=== PATIENT | female | born 1990 | race Asian ===

== ENCOUNTER 2018-07-31 15:22 | Emergency (ER) | payer OTHER ==
[~2018-07-31] VITALS: Ht 177.8 cm; Wt 124.7 kg
[2018-07-31 16:10] LABS: BASOPHILS # (AUTO) 0.03 x10^3/uL (0-0.1); BASOPHILS % (AUTO) 0 % (0-1); EOSINOPHILS # (AUTO) 0.27 x10^3/uL (0-0.4); EOSINOPHILS % (AUTO) 3 % (1-7); LYMPHOCYTES # (AUTO) 2.34 x10^3/uL (1-3.4); LYMPHOCYTES % (AUTO) 25 % (22-44); MD NO; MEAN CORPUSCULAR HEMOGLOBIN 24.2 pg (27.0-34.8); MEAN CORPUSCULAR HGB CONC 32.5 g/dL (32.4-35.8); MEAN CORPUSCULAR VOLUME 74.5 fL (80-100); MEAN PLATELET VOLUME 7.9 fL (7.4-10.4); MONOCYTES % (AUTO) 5 % (2-9); NEUTROPHILS # (AUTO) 6.28 x10^3/uL (1.8-6.8); NEUTROPHILS % (AUTO) 67 % (42-75); PLATELET COUNT 272 x10^3/uL (130-400); RED CELL DISTRIBUTION WIDTH 13.9 % (9.6-15.2)
[2018-07-31 16:23] LABS: ALANINE AMINOTRANSFERASE 50 U/L (12-78); ALBUMIN 3.9 g/dL (3.4-5.0); ANION GAP 8 mmol/L (5-15); CALCIUM 9.3 mg/dL (8.5-10.1); CHLORIDE 105 mmol/L (98-107); CREATININE 0.87 mg/dL (0.55-1.02)
[2018-07-31 16:25] LABS: ALKALINE PHOSPHATASE 117 U/L (45-117); BILIRUBIN,TOTAL 0.6 mg/dL (0.2-1.0); TOTAL PROTEIN 8.9 g/dL (6.4-8.2)
[2018-07-31 16:48] LABS: HCG UR SG 1.027 (1.003-1.030)
[2018-07-31 17:57] VITALS: BP 144/89
[2018-07-31] MEDS ORDERED: ONDANSETRON ODT 4 MG PO PRN (18:00)
== END 2018-07-31 18:39 | disposition home or self-care (01) ==
LOC: ED 18:34
DX: E11.65 Type 2 diabetes mellitus with hyperglycemia (principal); R20.2 Paresthesia of skin; R51 Headache
CPT/HCPCS: 36415; 70450; 80053; 81025; 83735; 85025; 99285

== ENCOUNTER 2018-08-04 11:01 | Emergency (ER) | payer OTHER ==
[~2018-08-04] VITALS: Ht 177.8 cm; Wt 124.6 kg
[2018-08-04] MEDS ORDERED: SODIUM CHLORIDE FLUSH 10ML SYR IVF ONE (12:00)
[2018-08-04 12:21] LABS: BASOPHILS # (AUTO) 0.04 x10^3/uL (0-0.1); BASOPHILS % (AUTO) 0 % (0-1); EOSINOPHILS # (AUTO) 0.27 x10^3/uL (0-0.4); EOSINOPHILS % (AUTO) 3 % (1-7); LYMPHOCYTES # (AUTO) 1.94 x10^3/uL (1-3.4); LYMPHOCYTES % (AUTO) 20 % (22-44); MD NO; MEAN CORPUSCULAR HEMOGLOBIN 24.6 pg (27.0-34.8); MEAN CORPUSCULAR HGB CONC 32.9 g/dL (32.4-35.8); MEAN CORPUSCULAR VOLUME 74.7 fL (80-100); MEAN PLATELET VOLUME 7.8 fL (7.4-10.4); MONOCYTES # (AUTO) 0.55 x10^3/uL (0.2-0.8); MONOCYTES % (AUTO) 6 % (2-9); NEUTROPHILS % (AUTO) 71 % (42-75); PLATELET COUNT 266 x10^3/uL (130-400); RED BLOOD COUNT 6.37 x10^6/uL (3.82-5.3); RED CELL DISTRIBUTION WIDTH 13.9 % (9.6-15.2)
[2018-08-04 12:33] LABS: ALBUMIN 3.6 g/dL (3.4-5.0); ANION GAP 6 mmol/L (5-15); CALCIUM 9.1 mg/dL (8.5-10.1); CHLORIDE 105 mmol/L (98-107)
[2018-08-04 12:37] LABS: ALANINE AMINOTRANSFERASE 46 U/L (12-78); ALKALINE PHOSPHATASE 108 U/L (45-117); BILIRUBIN,TOTAL 0.4 mg/dL (0.2-1.0); CREATININE 0.81 mg/dL (0.55-1.02); TOTAL PROTEIN 8.7 g/dL (6.4-8.2)
[2018-08-04] MEDS ORDERED: GADOBUTROL 10 MMOL/10 ML PFS ONE (14:03)
[2018-08-04 14:36] VITALS: BP 174/100
== END 2018-08-04 16:00 | disposition home or self-care (01) ==
LOC: ED 12:23
DX: R20.2 Paresthesia of skin (principal); E11.65 Type 2 diabetes mellitus with hyperglycemia; R53.1 Weakness
CPT/HCPCS: 36415; 70553; 80053; 85025; 99285; A9585

== ENCOUNTER 2018-08-06 14:29 | Inpatient (IN) | payer OTHER ==
[~2018-08-06] VITALS: Ht 177.8 cm; Wt 124.4 kg
[2018-08-06] VITALS (7 sets, daily range): BP systolic 132–161; BP diastolic 71–122
[2018-08-06] MEDS ORDERED: LABETALOL 5MG/ML, 20ML ONE (15:20)
[2018-08-06 15:28] LABS: BASOPHILS # (AUTO) 0.02 x10^3/uL (0-0.1); BASOPHILS % (AUTO) 0 % (0-1); EOSINOPHILS # (AUTO) 0.29 x10^3/uL (0-0.4); EOSINOPHILS % (AUTO) 3 % (1-7); LYMPHOCYTES # (AUTO) 1.85 x10^3/uL (1-3.4); LYMPHOCYTES % (AUTO) 19 % (22-44); MD NO; MEAN CORPUSCULAR HEMOGLOBIN 24.9 pg (27.0-34.8); MEAN CORPUSCULAR HGB CONC 33.1 g/dL (32.4-35.8); MEAN CORPUSCULAR VOLUME 75.3 fL (80-100); MEAN PLATELET VOLUME 7.9 fL (7.4-10.4); MONOCYTES % (AUTO) 6 % (2-9); NEUTROPHILS # (AUTO) 6.89 x10^3/uL (1.8-6.8); NEUTROPHILS % (AUTO) 71 % (42-75); PLATELET COUNT 274 x10^3/uL (130-400); RED BLOOD COUNT 6.31 x10^6/uL (3.82-5.3); RED CELL DISTRIBUTION WIDTH 13.3 % (9.6-15.2)
[2018-08-06 15:40] LABS: INTERNATIONAL NORMALIZED RATIO 0.97 (0.93-1.1)
[2018-08-06] MEDS ORDERED: GADOBUTROL 10 MMOL/10 ML PFS ONE (15:43)
[2018-08-06] MEDS ORDERED: METF500T17 PO (16:02)
[2018-08-06] MEDS ORDERED: ALTEPLASE 1 MG/ML ONE (16:26)
[2018-08-06] MEDS ORDERED: LABETALOL 5MG/ML, 20ML IVPush ONE (16:28)
[2018-08-06] MEDS ORDERED: ALTEPLASE 81 MG in VIAL 1 EACH IV ONE (16:30)
[2018-08-06] MEDS ORDERED: ALTEPLASE 9 MG in SYRINGE 1 EA IVPush ONE (16:30)
[2018-08-06] MEDS ORDERED: ACETAMINOPHEN 325 MG TABLET PO PRN (18:00)
[2018-08-06] MEDS ORDERED: ONDANSETRON 2MG/ML, 2ML IVPush PRN (18:00)
[2018-08-06] MEDS ORDERED: LIDODERM 5% PATCH TD PRN (18:00)
[2018-08-06] MEDS ORDERED: DOCUSATE 100 MG CAPSULE PO PRN (18:00)
[2018-08-06] MEDS ORDERED: BISACODYL 10 MG SUPP PR PRN (18:00)
[2018-08-06] MEDS ORDERED: OMNIPAQUE 350 MG/ML, 150 ML BOTTLE ONE (18:03)
[2018-08-06] MEDS ORDERED: PANTOPRAZOLE 40 MG IV IVPush ONE (18:30)
[2018-08-06 19:19] LABS: AMPHETAMINE SCREEN, URINE Negative (Negative); BARBITURATE SCREEN, URINE Negative (Negative); BENZODIAZEPINE SCREEN, URINE Negative (Negative); CANNABINOID SCREEN, URINE Negative (Negative); COCAINE SCREEN, URINE Negative (Negative); METHADONE SCREEN, URINE Negative (Negative); OPIATE SCREEN, URINE Negative (Negative)
[2018-08-06] MEDS: LACTULOSE 10 GM/15 ML UDC PO SCH (21:00)
[2018-08-06] MEDS: ATORVASTATIN 80 MG TABLET PO SCH (22:00)
[2018-08-07] MEDS: INSULIN LISPRO 100 UNITS/ML, PEN SQ-INSULIN SCH ×5 (00:10→20:01)
[2018-08-07 01:34] VITALS: BP 140/93
[2018-08-07 05:59] LABS: ALBUMIN 3.5 g/dL (3.4-5.0); ANION GAP 11 mmol/L (5-15); CALCIUM 9.1 mg/dL (8.5-10.1); CHLORIDE 103 mmol/L (98-107)
[2018-08-07 06:02] LABS: ALANINE AMINOTRANSFERASE 39 U/L (12-78); ALKALINE PHOSPHATASE 100 U/L (45-117); BILIRUBIN,TOTAL 1.3 mg/dL (0.2-1.0); CHOL/HDL RATIO 5.8; CHOLESTEROL, TOTAL 174 mg/dL (140-239); CREATININE 0.69 mg/dL (0.55-1.02); HDL CHOL % 17 % (28-40); HDL CHOLESTEROL (DIRECT) 30 mg/dL (40-60); LDL CHOLESTEROL,CALCULATED 99 mg/dL (54-169); LDL/HDL RATIO 3.3 (0.5-3.0); TOTAL PROTEIN 8.2 g/dL (6.4-8.2); TRIGLYCERIDES 224 mg/dL (50-200); VLDL CHOLESTEROL 45 mg/dL (0-25)
[2018-08-07 06:04] LABS: BASOPHILS # (AUTO) 0.02 x10^3/uL (0-0.1); BASOPHILS % (AUTO) 0 % (0-1); EOSINOPHILS # (AUTO) 0.32 x10^3/uL (0-0.4); EOSINOPHILS % (AUTO) 3 % (1-7); LYMPHOCYTES # (AUTO) 2.47 x10^3/uL (1-3.4); LYMPHOCYTES % (AUTO) 21 % (22-44); MD NO; MEAN CORPUSCULAR HEMOGLOBIN 24.8 pg (27.0-34.8); MEAN CORPUSCULAR HGB CONC 33.1 g/dL (32.4-35.8); MEAN CORPUSCULAR VOLUME 74.8 fL (80-100); MEAN PLATELET VOLUME 8.5 fL (7.4-10.4); MONOCYTES # (AUTO) 0.64 x10^3/uL (0.2-0.8); MONOCYTES % (AUTO) 5 % (2-9); NEUTROPHILS # (AUTO) 8.39 x10^3/uL (1.8-6.8); NEUTROPHILS % (AUTO) 71 % (42-75); PLATELET COUNT 255 x10^3/uL (130-400); RED BLOOD COUNT 6.02 x10^6/uL (3.82-5.3)
[2018-08-07 06:14] LABS: HEMOGLOBIN A1C 8.1 % (4.2-6.3)
[2018-08-07] MEDS ORDERED: PANTOPRAZOLE 40 MG IV IVPush SCH (09:00)
[2018-08-07] MEDS: LACTULOSE 10 GM/15 ML UDC PO SCH ×2 (09:00→20:02)
[2018-08-07] MEDS ORDERED: LISINOPRIL 20 MG TABLET PO SCH (12:30)
[2018-08-07] MEDS: ATORVASTATIN 80 MG TABLET PO SCH (20:01)
[2018-08-08] MEDS: INSULIN LISPRO 100 UNITS/ML, PEN SQ-INSULIN SCH ×4 (08:03→20:39)
[2018-08-08] MEDS ORDERED: LACTULOSE 10 GM/15 ML UDC PO PRN (09:00)
[2018-08-08] MEDS: PANTOPROZOLE 40MG TABLET PO SCH (10:00)
[2018-08-08] MEDS ORDERED: ASPIRIN 81 MG TABLET EC PO ONE (11:00)
[2018-08-08 14:30] VITALS: BP 129/88
[2018-08-08] MEDS: ATORVASTATIN 80 MG TABLET PO SCH (20:37)
[2018-08-09 00:18] VITALS: BP 125/80
[2018-08-09 05:03] LABS: ANION GAP 9 mmol/L (5-15); CALCIUM 8.5 mg/dL (8.5-10.1); CHLORIDE 106 mmol/L (98-107)
[2018-08-09 05:06] LABS: CREATININE 0.74 mg/dL (0.55-1.02)
[2018-08-09] MEDS ORDERED: ASPIRIN 81 MG TABLET EC PO SCH (06:00)
[2018-08-09 07:23] VITALS: BP 103/73
[2018-08-09] MEDS: PANTOPROZOLE 40MG TABLET PO SCH (07:30)
[2018-08-09] MEDS ORDERED: PANTOPROZOLE 40MG TABLET PO SCH (07:30)
[2018-08-09] MEDS: INSULIN LISPRO 100 UNITS/ML, PEN SQ-INSULIN SCH ×2 (08:13→11:00)
[2018-08-09] MEDS ORDERED: LIDOCAINE-MPF 1%, 5ML ONE (08:32)
[2018-08-09] MEDS ORDERED: PROPOFOL 10 MG/ML, 50ML ONE (08:38)
[2018-08-09 14:24] VITALS: BP 135/88
[2018-08-09] MEDS ORDERED: ASPI-621 PO (15:14)
[2018-08-09] MEDS ORDERED: ATOR-2 PO (15:14)
[2018-08-09] MEDS ORDERED: LISI5TAB7 PO (15:16)
== END 2018-08-09 18:17 | disposition home health service (06) | DRG 41 ==
LOC: ED 14:58 → EDIP 16:04 → CCU 18:05 → 4WST 08-08 12:37
PROVIDERS: ADMIT Hospitalist; ATTEND Hospitalist
PROC: 3E03317 Introduction of Other Thrombolytic into Peripheral Vein, Percutaneous Approach (ICD-10-PCS; principal; 2018-08-06)
PROC: 0JH632Z Insertion of Monitoring Device into Chest Subcutaneous Tissue and Fascia, Percutaneous Approach (ICD-10-PCS; 2018-08-09)
DX: I63.9 Cerebral infarction, unspecified (principal); Z68.41 Body mass index [BMI] 40.0-44.9, adult; G81.94 Hemiplegia, unspecified affecting left nondominant side; I10 Essential (primary) hypertension; R29.704 NIHSS score 4; E11.9 Type 2 diabetes mellitus without complications; E66.01 Morbid (severe) obesity due to excess calories; E78.5 Hyperlipidemia, unspecified; Z79.82 Long term (current) use of aspirin; Z79.899 Other long term (current) drug therapy; Z87.891 Personal history of nicotine dependence; R29.810 Facial weakness
CPT/HCPCS: 0042T; 33282; 36415; 37195; 70450; 70496; 70549; 70553; 80047; 80048; 80053; 80061; 80307; 81240; 81241; 82962; 83036; 83735; 85025; 85300; 85301; 85303; 85306; 85598; 85610; 85613; 85670; 85730; 85732; 86146; 86147; 87081; 93005; 93306; 93312; 93325; 99285; A9585; C1764; G0378; J2704; J2997; Q9967; 92523-GN; C9113; J1815; J7050

== ENCOUNTER 2021-02-19 17:11 | Emergency (ER) | payer MEDICAID, OTHER ==
[~2021-02-19] VITALS: Ht 175.3 cm; Wt 121.2 kg
[~2021-02-19 17:11] MED LIST: ASPI81TA45 PO; ATOR-2 PO; LISI5TAB7 PO; METF500T17 PO
--- NOTE | 2021-02-19 19:08 | NUR ---
PT TO ROOM FROM [facility], AMBULATORY WITH STEADY GAIT
--- NOTE | 2021-02-19 19:25 | NUR ---
INITIAL PT CONTACT. PT PRESENTS TO ED C/O "RUPTURING CYSTS IN MY ARMPIT, BEEN HAPPENING FOR APPROX 1 WEEK". PT SITTING UPRIGHT ON [address], VSAngel Luis. PT DENIES ANY NEEDS AT THIS TIME. CALL LIGHT AND BELONGINGS WITHIN REACH. FAMILY AT BEDSIDE. AWAITING ERP.
[2021-02-19] MEDS ORDERED: DIPH,PERTUSS(ACELL),TET VAC/PF 0.5 ML IM-VACC ONE ×2 (19:30)
[2021-02-19] MEDS ORDERED: LIDOCAINE-MPF 1%, 5ML ONE (19:30)
[2021-02-19] MEDS ORDERED: LIDOCAINE 1%-EPI 1:100K, 20ML INFIL ONE (19:30)
[2021-02-19 19:35] LABS: BASOPHILS % (AUTO) 1 % (0-1); EOSINOPHILS % (AUTO) 3 % (1-7); LYMPHOCYTES % (AUTO) 14 % (22-44); MEAN CORPUSCULAR HEMOGLOBIN 23.6 pg (27.0-34.8); MEAN CORPUSCULAR HGB CONC 32.4 g/dL (32.4-35.8); MEAN PLATELET VOLUME 7.9 fL (7.4-10.4); MONOCYTES % (AUTO) 6 % (2-9); NEUTROPHILS % (AUTO) 76 % (42-75); PLATELET COUNT 258 x10^3/uL (130-400); RED BLOOD COUNT 6.02 x10^6/uL (3.82-5.3); RED CELL DISTRIBUTION WIDTH 14.1 % (9.6-15.2)
[2021-02-19 19:36] LABS: MD NO
[2021-02-19 19:41] LABS: ANION GAP 5 mmol/L (5-15); CHLORIDE 105 mmol/L (98-107); CREATININE 0.86 mg/dL (0.55-1.02)
[2021-02-19] MEDS ORDERED: ENALAPRILAT 1.25 MG/ML, 1ML ONE (20:16)
[2021-02-19] MEDS ORDERED: PROPOFOL 10 MG/ML, 20ML ONE (20:16)
[2021-02-19] MEDS ORDERED: PROPOFOL 10 MG/ML, 20ML IVPush ONE (20:30)
[2021-02-19] MEDS ORDERED: ENALAPRILAT 1.25 MG/ML, 2ML IV ONE (20:30)
--- NOTE | 2021-02-19 20:44 | NUR ---
PT PREPARED FOR SEDATION, PLACED ON CONTINUOUS PULSE OX, CARDIAC AND END TIDAL CO2 MONITORING. CONSENT AT BEDSIDE AND SIGNED BY PT. EMERGENCY EQUIPMENT AVAILABLE AT BEDSIDE. AWAITING ERP FOR PROCEDURE.
[2021-02-19 21:35] VITALS: BP 144/94
--- NOTE | 2021-02-19 21:39 | NUR ---
PROCEDURAL SEDATION COMPLETE. PT TOLERATED WELL. WOUND DRESSED WITH GAUZE. PT REPORTS "FEELING MUCH BETTER" FOLLOWING REGISTRAR MUSEUM. PT RETURNED TO BASELINE. NO ADDITIONAL NEEDS AT THIS TIME. MOTHER AT BEDSIDE
[2021-02-19] MEDS ORDERED: HYDROmorphone 1 MG/ML, 1ML INJ ONE (21:48)
[2021-02-19] MEDS ORDERED: ONDANSETRON 2MG/ML, 2ML ONE (21:48)
[2021-02-19] MEDS ORDERED: HYDROmorphone 1 MG/ML, 1ML INJ IV ONE (22:00)
[2021-02-19] MEDS ORDERED: ONDANSETRON 2MG/ML, 2ML IVPush ONE (22:00)
--- NOTE | 2021-02-19 22:38 | NUR ---
Patient given discharge instructions and they have confirmed that they understand the instructions. Patient ambulatory with steady gait.
== END 2021-02-19 22:41 | disposition home or self-care (01) ==
LOC: ED 22:40
DX: L03.112 Cellulitis of left axilla (principal); L73.2 Hidradenitis suppurativa; Z72.9 Problem related to lifestyle, unspecified
CPT/HCPCS: 10060; 36415; 80048; 85025; 90471; 90715; 96374; 96375; 99152; 99285; J1170; J2405

== ENCOUNTER 2021-02-21 12:29 | Emergency (ER) | payer MEDICAID ==
[~2021-02-21] VITALS: Ht 177.8 cm; Wt 120.9 kg
[2021-02-21 12:44] VITALS: BP 145/95
--- NOTE | 2021-02-21 13:02 | NUR ---
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
[2021-02-21] MEDS ORDERED: NEOSPORIN OINT. PKT 1 PACKET ONE (14:19)
== END 2021-02-21 15:05 | disposition home or self-care (01) ==
LOC: ED 13:08
DX: L02.413 Cutaneous abscess of right upper limb (principal); Z86.73 Personal history of transient ischemic attack (TIA), and cerebral infarction without residual deficits; I10 Essential (primary) hypertension; E11.9 Type 2 diabetes mellitus without complications
CPT/HCPCS: 99281; 99282

== ENCOUNTER 2021-02-28 21:53 | Emergency (ER) | payer MEDICAID ==
[~2021-02-28] VITALS: Ht 177.8 cm; Wt 120.3 kg
[2021-03-01] MEDS ORDERED: DIPHENHYDRAMINE 50 MG/ML, 1ML IVPush ONE
[2021-03-01] MEDS ORDERED: SODIUM CHLORIDE FLUSH 10ML SYR IVF ONE
[2021-03-01] MEDS ORDERED: MORPHINE SULFATE 4 MG/ML, 1ML IVPush PRN
[2021-03-01] MEDS ORDERED: PROCHLORPERAZINE 5 MG/ML, 2ML IVPush ONE
[2021-03-01] MEDS ORDERED: SODIUM CHLORIDE 0.9% 1,000ML IVBOLUS ONE
[2021-03-01] MEDS ORDERED: KETOROLAC 30 MG/1 ML IVPush ONE
[2021-03-01] MEDS ORDERED: DIPHENHYDRAMINE 50 MG/ML, 1ML ONE (00:10)
[2021-03-01] MEDS ORDERED: KETOROLAC 30 MG/1 ML ONE (00:10)
[2021-03-01] MEDS ORDERED: MORPHINE SULFATE 4 MG/ML, 1ML ONE (00:10)
[2021-03-01] MEDS ORDERED: PROCHLORPERAZINE 5 MG/ML, 2ML ONE (00:10)
[2021-03-01 00:28] LABS: BASOPHILS % (AUTO) 0 % (0-1); EOSINOPHILS % (AUTO) 5 % (1-7); LYMPHOCYTES % (AUTO) 17 % (22-44); MD NO; MEAN CORPUSCULAR HEMOGLOBIN 23.5 pg (27.0-34.8); MEAN CORPUSCULAR HGB CONC 32.8 g/dL (32.4-35.8); MEAN PLATELET VOLUME 8.2 fL (7.4-10.4); MONOCYTES % (AUTO) 5 % (2-9); NEUTROPHILS % (AUTO) 73 % (42-75); PLATELET COUNT 141 x10^3/uL (130-400); RED BLOOD COUNT 6.23 x10^6/uL (3.82-5.3); RED CELL DISTRIBUTION WIDTH 14.2 % (9.6-15.2)
--- NOTE | 2021-03-01 00:30 | NUR ---
HAS C/O HEADACHE AND BODY ACHES FOR THE LAST 2 DAYS, PT HAS FAMILY AT BEDSIDE, PT A/OX4 WITH UNLABORED BREATHING. PT MEDICATED PER MAR
[2021-03-01 00:33] LABS: ALANINE AMINOTRANSFERASE 45 U/L (12-78); ALBUMIN 3.4 g/dL (3.4-5.0); ANION GAP 7 mmol/L (5-15); CALCIUM 8.7 mg/dL (8.5-10.1); CHLORIDE 102 mmol/L (98-107); CREATININE 0.79 mg/dL (0.55-1.02)
[2021-03-01 00:36] LABS: ALKALINE PHOSPHATASE 120 U/L (45-117); BILIRUBIN,TOTAL 0.6 mg/dL (0.2-1.0); TOTAL PROTEIN 8.4 g/dL (6.4-8.2)
[2021-03-01 02:16] LABS: MICROSCOPIC AUTO
[2021-03-01 02:39] VITALS: BP 155/88
== END 2021-03-01 02:40 | disposition home or self-care (01) ==
LOC: ED 22:34
DX: G43.C0 Periodic headache syndromes in child or adult, not intractable (principal); E11.65 Type 2 diabetes mellitus with hyperglycemia; L01.01 Non-bullous impetigo; I10 Essential (primary) hypertension; Z86.73 Personal history of transient ischemic attack (TIA), and cerebral infarction without residual deficits
CPT/HCPCS: 36415; 70450; 80053; 81001; 84703; 85025; 87086; 96361; 96374; 96375; 99284; J0780; J1200; J1885; J2270; J7030; 87106

== ENCOUNTER 2021-03-05 07:45 | Emergency (ER) | payer MEDICAID ==
[~2021-03-05] VITALS: Ht 177.8 cm; Wt 117.2 kg
--- NOTE | 2021-03-05 09:30 | NUR ---
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
--- NOTE | 2021-03-05 10:08 | NUR ---
PT HAS CO NECK AND SHOULDER PAIN SINCE SUNDAY. NO INJURIES OR FALLS. PT TO BED WITH STEADY GAIT. POSTIONED TO COMFORT. ATTACHED TO MONITOR. VSS. COMPLAINS OF 8/10 PAIN. KERA FAGAN EVALUATED BEDSIDE.
[2021-03-05] MEDS ORDERED: KETOROLAC 30 MG/1 ML ONE (10:12)
[2021-03-05] MEDS ORDERED: METHOCARBAMOL 750 MG TABLET ONE (10:12)
[2021-03-05] MEDS ORDERED: ACETAMINOPHEN 325 MG TABLET ONE (10:13)
[2021-03-05] MEDS ORDERED: ACETAMINOPHEN 325 MG TABLET PO ONE (10:30)
[2021-03-05] MEDS ORDERED: METHOCARBAMOL 750 MG TABLET PO ONE (10:30)
[2021-03-05] MEDS ORDERED: KETOROLAC 30 MG/1 ML IM ONE (10:30)
[2021-03-05 10:34] LABS: BASOPHILS % (AUTO) 1 % (0-1); EOSINOPHILS % (AUTO) 3 % (1-7); LYMPHOCYTES % (AUTO) 28 % (22-44); MEAN CORPUSCULAR HEMOGLOBIN 23.8 pg (27.0-34.8); MEAN CORPUSCULAR HGB CONC 33.1 g/dL (32.4-35.8); MONOCYTES % (AUTO) 6 % (2-9); NEUTROPHILS % (AUTO) 61 % (42-75); PLATELET COUNT 176 x10^3/uL (130-400); RED BLOOD COUNT 5.83 x10^6/uL (3.82-5.3); RED CELL DISTRIBUTION WIDTH 13.8 % (9.6-15.2)
[2021-03-05 10:37] LABS: MD NO
[2021-03-05 10:41] LABS: ALBUMIN 3.3 g/dL (3.4-5.0); ANION GAP 5 mmol/L (5-15); CALCIUM 8.6 mg/dL (8.5-10.1); CHLORIDE 107 mmol/L (98-107); CREATININE 0.72 mg/dL (0.55-1.02)
[2021-03-05 11:20] VITALS: BP 146/95
--- NOTE | 2021-03-05 11:27 | NUR ---
Patient given discharge instructions and they have confirmed that they understand the instructions. Patient ambulatory with steady gait.
== END 2021-03-05 11:28 | disposition home or self-care (01) ==
LOC: ED 09:07
DX: S16.1XXA Strain of muscle, fascia and tendon at neck level, initial encounter (principal); M79.10 Myalgia, unspecified site; M25.511 Pain in right shoulder; I10 Essential (primary) hypertension; E11.9 Type 2 diabetes mellitus without complications; Z86.73 Personal history of transient ischemic attack (TIA), and cerebral infarction without residual deficits; W18.30XA Fall on same level, unspecified, initial encounter; Y93.89 Activity, other specified; Y92.89 Other specified places as the place of occurrence of the external cause; Y99.8 Other external cause status
CPT/HCPCS: 36415; 72050; 80048; 82040; 85025; 96372; 99284; J1885